=== PATIENT | female | born 2000 | race Two or more races ===

== ENCOUNTER 2024-04-04 00:44 | Emergency (ER) | payer OTHER ==
[~2024-04-04] VITALS: Ht 165.1 cm; Wt 81.8 kg
[~2024-04-04 00:44] MED LIST: ACYC400T16 PO; CEPH500C PO
[2024-04-04 00:59] VITALS: PULSE 96; RESP 19; O2SAT 97
[2024-04-04 01:31] LABS: Basophils # (auto) 0.1 10 ^3/uL (0-0.2); Basophils % (auto) 0.4 % (0.0-2.0); Eosinophils # (auto) 0 10 ^3/uL (0-0.8); Eosinophils % (auto) 0.2 % (0.0-7.0); Hematocrit 37.9 % (36.0-46.0); Hemoglobin 12.4 g/dL (12.2-16.2); Lymphocytes # (auto) 1.5 10 ^3/uL (0.4-5.4); Lymphocytes % (auto) 10.7 % (10.0-50.0); Mean Corpuscular Hemoglobin 26.4 pg (28.0-32.0); Mean Corpuscular Hgb Conc. 32.8 g/dL (32.0-36.0); Mean Corpuscular Volume 80.7 fL (80.0-100.0); Monocytes # (auto) 0.8 10 ^3/uL (0-1.3); Monocytes % (auto) 5.5 % (0.0-12.0); Neutrophils % (auto) 83.2 % (37.0-80.0); Platelet Count (auto) 276 10^3/uL (140-450); White Blood Cell 14.4 10^3/uL (4.4-10.8)
[2024-04-04] MEDS: SODIUM CHLORIDE 0.9% 1,000 ML IV ONE (01:37)
[2024-04-04 01:51] LABS: Alanine Aminotransferase 12 U/L (7-40); Albumin 4.2 g/dL (3.2-4.8); Alkaline Phosphatase 72 U/L (46-116); Anion Gap 9 (5-15); Aspartate Aminotransferase 16 U/L (13-40); BUN/Creatinine Ratio 12.9 (10.0-20.0); Blood Urea Nitrogen 11 mg/dL (9-23); Calcium 9.2 mg/dL (8.7-10.4); Carbon Dioxide 24 mmol/L (20-30); Chloride 107 mmol/L (98-107); Glucose 123 mg/dL (74-106); Potassium 3.1 mmol/L (3.5-5.1); Sodium 140 mmol/L (136-145)
[2024-04-04 01:52] LABS: Bilirubin, Total 0.6 mg/dL (0.2-1.0); Total Protein 7.4 g/dL (5.7-8.2)
[2024-04-04 02:02] LABS: Blood Alcohol < 3.0 mg/dL (<10)
[2024-04-04 03:10] VITALS: PULSE 83; RESP 12; TEMP 98.1; O2SAT 100
[2024-04-04] MEDS: KETOROLAC TROMETH 30 MG/ML 1ML VIAL IV ONE (03:27)
[2024-04-04] MEDS: POTASSIUM EFFERVESENT TAB 25 MEQ GT ONE (03:28)
[2024-04-04 05:00] VITALS: BP 102/69; PULSE 86; RESP 21; O2SAT 99
== END 2024-04-04 05:46 | disposition admitted as inpatient to this hospital (09) ==
LOC: ER 00:44
DX: R41.82 Altered mental status, unspecified (principal); R10.2 Pelvic and perineal pain; Z79.899 Other long term (current) drug therapy
CPT/HCPCS: 36415; 70450; 72125; 80053; 80320; 84702; 85025; 93005; 96361; 96374; 99285; J1885; J7030